=== PATIENT | female | born 1950 | race Caucasian/White ===

== ENCOUNTER 2018-02-11 21:28 | Observation (INO) | payer MEDICARE ==
--- NOTE | 2018-02-11 22:04 | RAD ---
PA AND LATERAL CHEST: HISTORY: Chest pain. COMPARISON: 09/02/2012 FINDINGS: The heart size is normal. The lungs are well expanded without focal areas of consolidation, pneumoth oraces, or pleural effusions. There are degenerative changes in the thoracic spine. Postop changes and metallic hardware are noted in the lower cervical spine. IMPRESSION: No radiographic evidence of acute cardiopulmonary process. POS: [facility]REW
[2018-02-11 22:06] LABS: #Basophils 0.1 thou/uL (0.0-0.2); #Eosinphils 0.1 thou/uL (0.0-0.7); #Lymphocytes 2.6 thou/uL (1.20-3.40); #Monocytes 0.7 thou/uL (0.11-0.59); %Eosinophils 1.9 % (0.0-10.0); %Lymphocytes 34.8 % (21.0-51.0); %Neutrophils 53.3 % (42.0-75.0); Hemoglobin 14.1 g/dL (12.0-16.0); Mean Corpuscular HGB CONC 34.6 g/dL (32.0-36.0); Mean Corpuscular Hemoglobin 29.9 pg (27.0-31.0); Mean Corpuscular Volume 86.2 fL (78.0-98.0); Mean Platelet Volume 9.5 fL (7.4-10.4); Platelet Count 230 thou/uL (130-400); RBC Distribution Width 12.9 % (11.5-14.5); Red Blood Cell (RBC) Count 4.73 mill/uL (4.20-5.40); White Blood Cell (WBC) Count 7.6 thou/uL (4.8-10.8)
[2018-02-11 22:24] LABS: ALT (SGPT) 33 U/L (8-55); AST (SGOT) 21 U/L (5-34); Albumin 4.4 g/dL (3.4-4.8); Alkaline Phosphatase 70 U/L (40-150); Anion Gap 17 mmol/L (10-20); BUN (Urea Nitrogen) 17 mg/dL (9.8-20.1); Bilirubin, Total 0.4 mg/dL (0.2-1.2); CK (CPK) 67 U/L (29-168); Calc. Creatinine Clearance 0 mL/min (70-130); Calcium 9.8 mg/dL (7.8-10.44); Carbon Dioxide 25 mmol/L (23-31); Chloride 101 mmol/L (98-107); Estimated GFR-MDRD 53; Globulin 3.1 g/dL (2.4-3.5); Glucose 130 mg/dL (80-115); Potassium 3.9 mmol/L (3.5-5.1); Protein, Total 7.5 g/dL (6.0-8.3); Sodium 139 mmol/L (136-145)
[2018-02-11 22:29] LABS: CKMB 1.1 ng/mL (0-6.6); Troponin I Less than 0.010 ng/mL (< 0.028)
[2018-02-12 01:18] LABS: Troponin I Less than 0.010 ng/mL (< 0.028)
--- NOTE | 2018-02-12 02:11 | PDOC.FPRHP ---
- History of Present Illness Chief Complaint: chest pain History of Present Illness: Patient is a 67 yo F with PMH significant for GERD, HTN, HLD, and DMII, presenting to the ED today for chest pain. The patient describes it as "indegestion that is painful." She says the pain is burning and is concentrated on her left chest and under her left breast. The pain radiates down her left arm. She states the pain started around 1100 and lasted about an hour. The pain started again around 1400 and got worse around 1700. She tried drinking baking soda, water, and a diet coke to help with the pain, but this did not help. She denies SOB or diaphoresis associated with the pain. She also denies any fever or NVD. - History PMHx: HTN, HLD, DM on insulin, IBS, GERD PSHx: hysterectomy, rotator cuff, neck fusion FHx: sibling: leukemia; mother: COPD Social: quit smoking > 20 yrs ago, drinks wine occasionally, denies drug use - Review of Systems General: denies: fever/chills, weight/appetite/sleep changes, night sweats, fatigue Eyes: denies: eye pain, vision changes ENT: denies: nasal congestion, rhinorrhea Respiratory: denies: cough, congestion, shortness of breath, exercise intolerance Cardiovascular: reports: chest pain, edema. denies: palpitation, paroxysmal nocturnal dyspnea, orthopnea Gastrointestinal: reports: abdominal pain (assocaited with her IBS). denies: nausea, vomiting, diarrhea, constipation, GI bleeding Genitourinary: denies: incontinence, dysuria, polyuria Skin: denies: rashes, lesions, jaundice Musculoskeletal: denies: pain, tenderness, stiffness Neurological: denies: numbness, syncope, seizure, weakness Psychological: denies: anxiety, depression - Vital signs BP: 138/64 HR: 76 RR: 16 Tmax: 98 Pox: 95% on RA Wt: 86.2kg - Physical Exam Constitutional: NAD, awake, alert and oriented, well developed HEENT: normocephalic and atraumatic, PERRLA, EOMI, grossly normal vision, grossly normal hearing, MMM Neck: supple, no JVD, no bruits Chest: no-tender to palpation, no lesions Heart: RRR, normal S1/S2, no murmurs/rubs/gallops, pulses present, other (trace edema) Lungs: CTAB, no respiratory distress, good air movement, no wheezing Abdomen: soft, non-tender, bowel sounds present, no masses/distention Musculoskeletal: normal structure, normal tone Neurological: no focal deficit, CN II-XII intact Skin: no rash/lesions, good turgor Heme/Lymphatic: no unusual bruising or bleeding, no purpura Psychiatric: normal mood and affect FMR H&P: Results - Labs Result Diagrams: 02/11/18 21:56 02/11/18 21:56 Lab results: WBC 7.6 thou/uL (4.8-10.8) 02/11/18 21:56 Hgb 14.1 g/dL (12.0-16.0) 02/11/18 21:56 Hct 40.8 % (36.0-47.0) 02/11/18 21:56 MCV 86.2 fL (78.0-98.0) 02/11/18 21:56 Plt Count 230 thou/uL (130-400) 02/11/18 21:56 Neutrophils % 53.3 % (42.0-75.0) 02/11/18 21:56 Sodium 139 mmol/L (136-145) 02/11/18 21:56 Potassium 3.9 mmol/L (3.5-5.1) 02/11/18 21:56 Chloride 101 mmol/L (98-107) 02/11/18 21:56 Carbon Dioxide 25 mmol/L (23-31) 02/11/18 21:56 BUN 17 mg/dL (9.8-20.1) 02/11/18 21:56 Creatinine 1.04 mg/dL (0.6-1.1) 02/11/18 21:56 Glucose 130 mg/dL (80-115) H 02/11/18 21:56 Calcium 9.8 mg/dL (7.8-10.44) 02/11/18 21:56 Total Bilirubin 0.4 mg/dL (0.2-1.2) 02/11/18 21:56 AST 21 U/L (5-34) 02/11/18 21:56 ALT 33 U/L (8-55) 02/11/18 21:56 Alkaline Phosphatase 70 U/L (40-150) 02/11/18 21:56 Creatine Kinase 67 U/L (29-168) 02/11/18 21:56 CK-MB (CK-2) 1.1 ng/mL (0-6.6) 02/11/18 21:56 B-Natriuretic Peptide 12.1 pg/mL (0-100) 02/11/18 22:00 Serum Total Protein 7.5 g/dL (6.0-8.3) 02/11/18 21:56 Albumin 4.4 g/dL (3.4-4.8) 02/11/18 21:56 FMR H&P: A/P - Problem List (1) Chest pain Current Visit: Yes Status: Acute Code(s): R07.9 - CHEST PAIN, UNSPECIFIED (2) GERD (gastroesophageal reflux disease) Current Visit: Yes Status: Acute Code(s): K21.9 - GASTRO-ESOPHAGEAL REFLUX DISEASE WITHOUT ESOPHAGITIS (3) HTN (hypertension) Current Visit: Yes Status: Acute Code(s): I10 - ESSENTIAL (PRIMARY) HYPERTENSION (4) IBS (irritable bowel syndrome) Current Visit: Yes Status: Acute (5) Diabetes mellitus Current Visit: Yes Status: Acute Code(s): E11.9 - TYPE 2 DIABETES MELLITUS WITHOUT COMPLICATIONS (6) HLD (hyperlipidemia) Current Visit: Yes Status: Acute Code(s): E78.5 - HYPERLIPIDEMIA, UNSPECIFIED - Plan 1. Chest pain - likely 2/2 to GERD - Will trend trop, EKGs - Will give GI cocktail 2. GERD - possibly causing the pt's chest pain - Will see how GI cocktail affects symptoms - will start home meds 3. DM - current glucose: 130 - start home meds - start mild SS 4. IBS - no acute issues - start home meds 5. HTN - pt's current BP 138/64 - start home meds - will monitor BPs 6. HLD - no acute issues - start home meds Disposition/LOS: DISPO: likely < 2 midnights CODE:FULL FMR H&P: Upper Level - Pertinent history Agree with Floor Manager HPI as above. 67 y/o F with acute chest pain. - Pertinent findings GEN: NAD, awake, alert and oriented HEENT: normocephalic and atraumatic, PERRL, EOMI Neck: supple, no JVD, no bruits Chest: no-tender to palpation, no lesions Heart: RRR, normal S1/S2, no murmurs/rubs/gallops, pulses present, dependent edeme b/l Lungs: CTAB, no respiratory distress, good air movement, no wheezing Abdomen: soft, non-tender, bowel sounds present, no masses/distention Musculoskeletal: normal structure, normal tone Neurological: no focal deficit, CN II-XII intact Skin: no rash/lesions, good turgor Heme/Lymphatic: no unusual bruising or bleeding, no purpura Psychiatric: normal mood and affect - Plan Date/Time: 02/12/18 0208 IAly, have evaluated this patient and agree with findings/plan as outlined by video editing intern resident. Pertinent changes/additions are listed here. 1. Atypical Chest Pain - Likely 2/2 to GI source given GERD and presentation. Negative initial troponins and no EKG changes. She was given ASA and pain improved upon presentation spontaneously. - Given patient's excessive RF's, heart score 3-4, and chest pain, will make NPO and schedule for stress test tomorrow. - Continue to monitor VS and restart home medications. 2. GERD - give GI cocktain and start on H2 tony 3. T2DM - controlled - Restart BID intermediate acting insulin along with Mild SSI and monitor BG. 4. IBS - No acute issues 5. HTN - Controlled, will restart home medications and monitor BPs 6. HLD - Restart Simvistatin 7. FEN: - NPO after midnight, replete lytes PRN
[2018-02-12 04:01] LABS: Troponin I 0.013 ng/mL (< 0.028)
[2018-02-12] MEDS ORDERED: Dextrose 5% in Water 1,000 ML IV PRN (04:20)
[2018-02-12] MEDS ORDERED: Dextrose 50% Abboject 50 ML SYRINGE SLOW IVP PRN (04:20)
[2018-02-12] MEDS ORDERED: HumaLOG 300 UNITS/3 ML VIAL SC PRN (04:20)
[2018-02-12] MEDS ORDERED: Ondansetron ODT 4 MG TAB PO PRN (04:20)
[2018-02-12] MEDS ORDERED: Acetaminophen 325 MG TAB PO PRN ×2 (04:20)
[2018-02-12] MEDS ORDERED: Enoxaparin Sodium 40 MG/0.4 ML SYRINGE SC SCH (04:45)
[2018-02-12] MEDS ORDERED: Lidocaine 2% Viscous Solution 20 ML, Aluminum & Magnesium Hydroxide 30 ML, Donnatal Eli... SSW SCH (04:45)
--- NOTE | 2018-02-12 05:46 | PDOC.FM ---
- Objective MAR Reviewed: Yes Result Diagrams: 02/11/18 21:56 02/11/18 21:56 Dx/Plan (1) Chest pain Code(s): R07.9 - CHEST PAIN, UNSPECIFIED Status: Acute (2) Diabetes mellitus Code(s): E11.9 - TYPE 2 DIABETES MELLITUS WITHOUT COMPLICATIONS Status: Acute (3) GERD (gastroesophageal reflux disease) Code(s): K21.9 - GASTRO-ESOPHAGEAL REFLUX DISEASE WITHOUT ESOPHAGITIS Status: Acute (4) HLD (hyperlipidemia) Code(s): E78.5 - HYPERLIPIDEMIA, UNSPECIFIED Status: Acute (5) HTN (hypertension) Code(s): I10 - ESSENTIAL (PRIMARY) HYPERTENSION Status: Acute (6) IBS (irritable bowel syndrome) Status: Acute
[2018-02-12 07:50] VITALS: BMI 34.2
[2018-02-12 07:56] LABS: Troponin I Less than 0.010 ng/mL (< 0.028)
[2018-02-12] MEDS ORDERED: Famotidine 20 MG TAB PO SCH (09:00)
[2018-02-12] MEDS ORDERED: Aspirin 325 MG TAB PO SCH (09:00)
--- NOTE | 2018-02-12 11:25 | NM ---
RADIONUCLIDE STRESS ONLY MYOCARDIAL PERFUSION SCAN: LEFT VENTRICULAR WALL MOTION EVALUATION AND EJECTION FRACTION: HISTORY: Chest pain. FINDINGS: Adenosine protocol. Homogeneous uptake of radiotracer throughout the left ventricular myocardium. N o focal perfusion defect. QGS analysis of gated SPECT images show some dyskinesis of the lateral wall. This may be artificial, given the normal LVEF of 61%. IMPRESSION: Normal myocardial perfusion stress only examination. Normal left ventricular ejection fraction. POS: [facility]W
--- NOTE | 2018-02-12 13:06 | HP ---
I have examined the patient and examined the case with Dr. Poonam West HISTORY OF PRESENT ILLNESS: Ms. Dempsey is a pleasant 67-year-old white female patient who was adm itted with some atypical left-sided chest pain that felt like "indigestion". It radiated to undernea th her left breast and left arm. She presented to the ER and was admitted for further evaluation and workup. Her initial tropes and cardiac enzymes were negative. PHYSICAL EXAMINATION: VITAL SIGNS: Her blood pressure is 140/60, her pulse rate is 78, respirations 16. She is afebrile a nd her room air pulse ox is 95%. GENERAL: She is awake, alert, in no distress. EARS, NOSE, AND THROAT: No erythema or exudate. NECK: Supple. CARDIAC: The PMI is in the fifth intercostal space midclavicular line. S4 gallop. No murmur or rub noted. LUNGS: Clear, without rales or wheezes. ABDOMEN: Flat and soft. NEUROLOGIC: No deficits. LABORATORY DATA AND IMAGING: CBC: White count is 7600, hemoglobin is 14.1, hematocrit 40.8 with an MCV of 86. Chemistries: Sodium 139, potassium 3.9, chloride 101, bicarbonate 25, BUN 17, creatinine 1.04. Tropes x3 are negative. EKG, no acute ischemic changes. ASSESSMENT: Atypical chest pain. PLAN: Admit for stress Myoview.
[2018-02-12] MEDS ORDERED: ADENOSINE 60 MG/20 ML VIAL ONE (13:17)
[2018-02-12 16:04] VITALS: BP 179/75; TEMP 98
--- NOTE | 2018-02-13 04:40 | DIS-2 ---
DATE OF ADMISSION: 02/11/2018 DATE OF DISCHARGE: 02/12/2018 RESIDENT: Rocco Alatorre DO ADMITTING ATTENDING: Dr. Joyce. DISCHARGE ATTENDING: Dr. Nicole. CONSULTATIONS: None. PROCEDURES: Chest x-ray showed no evidence of acute cardiopulmonary process, nuclear stress test ameean wed normal myocardial perfusion with an EF of 61. PRIMARY DIAGNOSIS: Gastroesophageal reflux disease. SECONDARY DIAGNOSES: Hypertension, hyperlipidemia, diabetes type 2. DISCHARGE MEDICATIONS: None. DISCONTINUED MEDICATIONS: None. HISTORY OF PRESENT ILLNESS: This is a 67-year-old female who came in this morning with a chief compl aint of chest pain. She describes it as a painful indigestion, chest pain was under her left breast radiated down to her arms. It started on the 30th and got worse throughout the day. While she was h ere, she underwent a chest x-ray and a nuclear stress test, which was normal. Troponins were normal, negative x3. EKGs were negative x2. DISPOSITION: Stable. DISCHARGE INSTRUCTIONS: 1. Location: Home. 2. Diet: Heart healthy. 3. Activities: As tolerated. 4. Followup: Follow up in 1-2 weeks with PCP.
[2018-02-13] MEDS ORDERED: Enoxaparin Sodium 40 MG/0.4 ML SYRINGE SC SCH (09:00)
== END 2018-02-12 18:11 | disposition home or self-care (01) ==
LOC: ERS 21:28 → ERHOLD 23:44 → 2NO 02-12 07:37
PROVIDERS: ADMIT Family Medicine; ATTEND Family Medicine
DX: K21.9 Gastro-esophageal reflux disease without esophagitis (principal); I10 Essential (primary) hypertension; E78.5 Hyperlipidemia, unspecified; E11.9 Type 2 diabetes mellitus without complications; K58.9 Irritable bowel syndrome, unspecified; Z79.4 Long term (current) use of insulin; Z87.891 Personal history of nicotine dependence
CPT/HCPCS: 71046; 78452; 80053; 82550; 82553; 82962; 83880; 84484 ×3; 85025; 93005; 93017; 96372; 99285; A9500; G0378 ×3; 36415; 36416; J0153; J1650

== ENCOUNTER 2018-04-23 12:52 | Outpatient (CLI) | payer MEDICARE ==
[~2018-04-23 12:52] MED LIST: Gadobenate Dimeglumine 529 MG/1 ML (20ML VIAL) ONE
[2018-04-23 13:40] LABS: Estimated GFR-MDRD - POC Greater than 90
--- NOTE | 2018-04-23 16:20 | MRI ---
MRI LUMBAR SPINE WITH AND WITHOUT CONTRAST: 04/23/18 Multiplanar and multisequential imaging of the lumbar spine obtained. Postcontrast images were obtain ed after administration of 17 mL of Multihance IV. INDICATIONS: Low back pain. Radiation to the left lower extremity and hip. No comparison studies. FINDINGS: Lumbar vertebrae maintain normal height and alignment. End plate deformities consistent with Schmorl nodes seen involving the superior end plates of L2 and L3. No edema at these sites and therefore, no evidence of acute Schmorl node development. Disc spaces are preserved. At L1-2, no significant disc bulge or protrusion. No central canal or foraminal stenosis. At L2-3, mild disc bulge without protrusion. Mild facet arthrosis. No central canal or foraminal sten osis. At L3-4, minimal disc bulge. Mild facet arthrosis. No significant central canal or foraminal stenosis . At L4-5, mild broad based bulge. The facet and ligamentous hypertrophy is more prominent. There is po sterior epidural fat. These changes do compress the thecal sac resulting in mild to moderate central canal stenosis. At L5-S1, Mild disc bulge, slightly more pronounced to the right. Facet arthrosis and mild hypertroph y. No significant central canal stenosis. Mild right foraminal encroachment. IMPRESSION: Moderate central canal stenosis at L4-5 as described above. other findings of the lumbar spine as not ed above. POS: [facility]
--- NOTE | 2018-04-23 17:05 | MRI ---
MRI CERVICAL SPINE WITH AND WITHOUT IV CONTRAST: Date: 04/23/18 HISTORY: History of prior cervical fusion. Patient complains of neck pain that radiates down left arm. Symptom s have been present for months. COMPARISON: Noncontrast MRI cervical spine on 09/09/12. FINDINGS: There have been interval postsurgical changes related to anterior cervical fusion with metallic susce ptibility artifact at the C5-6 level related to anterior plate and screws transfixing this level. Again noted is a focus of increased T1 and T2-weighted signal intensity within the C7 vertebral body, which likely represents a small hemangioma. Normal signal intensity is otherwise demonstrated throug hout the bone marrow. No abnormal areas of enhancement are seen after the administration of intravenous contrast. Cervicome dullary junction has a normal MRI appearance. C2-3 Level: There is a broad based disc osteophyte complex which narrows the ventral subarachnoid space. This was present on the prior exam, although may be slightly increased from the prior study. This does not en croach on the spinal cord. There is mild left-sided neural foraminal narrowing to the eccentric disc osteophyte complex. Right neural foramen is patent. C3-4 Level: There is a mild disc osteophyte complex. This narrows the ventral subarachnoid space. There is mild l eft-sided neural foraminal narrowing. The right neural foramen is patent. C4-5 Level: There is mild disc osteophyte complex which results in mild generalized narrowing of the central spin al canal. There is mild to moderate right-sided neural foraminal narrowing. The left neural foramen i s partially obscured due to artifact on the axial 3D gradient echo images, but on the postcontrast T1 -weighted images, there appears to be mild to moderate left-sided neural foraminal narrowing. C5-6 Level: There is mild posterior osteophyte formation which narrows the ventral subarachnoid space resulting i n slight flattening of the anterior aspect of the spinal cord, but there is normal signal intensity i n the spinal cord. Neural foramina are patent. C6-7 Level: There is disc osteophyte complex present which narrows the ventral subarachnoid space with slight fla ttening of the anterior aspect of the spinal cord. Normal signal intensity is present in the spinal c ord. There is mild bilateral neural foraminal narrowing, greater on the left. C7-T1 Level: There is no disc bulge or disc herniation. Central spinal canal and neural foramina are patent. T1-2 Level: There is no disc bulge or disc herniation. Central spinal canal and neural foramina are patent. There is mild central disc protrusion at the T4-5 level with narrowing of the ventral subarachnoid sp hao, but the neural foramina at this level do appear patent. IMPRESSION: Interval postsurgical changes related to anterior cervical fusion at the C5-6 level. There are degene rative changes seen above and below levels of postsurgical change with disc osteophyte complexes pres ent. POS: [facility]
== END 2018-04-23 12:53 | disposition home or self-care (01) ==
LOC: BICMRI 12:52
PROVIDERS: ATTEND Neurological Surgery
DX: M47.22 Other spondylosis with radiculopathy, cervical region (principal); M25.78 Osteophyte, vertebrae; M48.061 Spinal stenosis, lumbar region without neurogenic claudication; M51.16 Intervertebral disc disorders with radiculopathy, lumbar region; M47.26 Other spondylosis with radiculopathy, lumbar region; Z98.1 Arthrodesis status
CPT/HCPCS: 72156; 72158; 82565; A9579

== ENCOUNTER 2019-06-27 11:56 | Outpatient (CLI) | payer MEDICARE ==
--- NOTE | 2019-06-27 13:09 | RAD ---
TWO VIEWS CHEST: DATE: 06/27/2019. PROVIDED CLINICAL HISTORY: Cough. FINDINGS: Comparison 12/27/2018. Cardiac and mediastinal silhouette is within normal limits. Lungs appear deon r. No pleural fluid or pneumothorax apparent. Vascular calcification involves the aortic arch. Stab le calcified granuloma left upper lobe. IMPRESSION: No evidence for an acute cardiopulmonary process. POS: OFF
== END 2019-06-27 11:57 | disposition home or self-care (01) ==
LOC: SCSRAD 11:56
PROVIDERS: ATTEND Family Medicine
DX: R69 Illness, unspecified (principal)
CPT/HCPCS: 71046

== ENCOUNTER 2021-12-08 09:58 | Outpatient (CLI) | payer MEDICARE | END 2021-12-08 09:59 | disposition home or self-care (01) | LOC: BICMAMMO 09:58 | PROVIDERS: ATTEND Family Medicine | DX: Z13.820 Encounter for screening for osteoporosis (principal); E28.39 Other primary ovarian failure; M85.89 Other specified disorders of bone density and structure, multiple sites; Z78.0 Asymptomatic menopausal state | CPT/HCPCS: 77080 ==

== ENCOUNTER 2023-02-13 14:43 | Emergency (ER) | payer OTHER, MEDICARE | END 2023-02-13 17:42 | disposition home or self-care (01) | LOC: ERS 14:43 | DX: M54.6 Pain in thoracic spine (principal); E07.89 Other specified disorders of thyroid; E11.9 Type 2 diabetes mellitus without complications; I10 Essential (primary) hypertension; K21.9 Gastro-esophageal reflux disease without esophagitis; E78.5 Hyperlipidemia, unspecified; Z79.4 Long term (current) use of insulin; Z79.899 Other long term (current) drug therapy; Z79.84 Long term (current) use of oral hypoglycemic drugs; Z79.82 Long term (current) use of aspirin | CPT/HCPCS: 72128; 96372 ==

== ENCOUNTER 2023-03-21 09:40 | Outpatient (CLI) | payer MEDICARE | END 2023-03-21 09:41 | disposition home or self-care (01) | LOC: ULT 09:40 | PROVIDERS: ATTEND Family Medicine | DX: E04.2 Nontoxic multinodular goiter (principal) | CPT/HCPCS: 76536 ==

== ENCOUNTER → 2023-04-30 | Day surgery (SDC) | payer MEDICARE | LOC: ULT 13:00 | PROVIDERS: ATTEND Family Medicine | PROC: 0GBH3ZX Excision of Right Thyroid Gland Lobe, Percutaneous Approach, Diagnostic (ICD-10-PCS; principal; 2023-04-30) | DX: E04.2 Nontoxic multinodular goiter (principal) | CPT/HCPCS: 10005; 88173; 88305 ==